=== PATIENT | female | born 2000 | race Hispanic/Latino ===

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

== ENCOUNTER 2024-01-21 08:40 | Emergency (ER) | payer OTHER ==
[~2024-01-21] VITALS: Ht 167.6 cm; Wt 95.3 kg
[2024-01-21] MEDS ORDERED: NAPR-1196 PO (09:30)
[2024-01-21 10:02] VITALS: BP 118/66; PULSE 69; RESP 16; TEMP 98.4; O2SAT 98
== END 2024-01-21 10:07 | disposition home or self-care (01) ==
LOC: EDH 08:40
DX: S93.491A Sprain of other ligament of right ankle, initial encounter (principal); X50.1XXA Overexertion from prolonged static or awkward postures, initial encounter; Y93.01 Activity, walking, marching and hiking; Y92.89 Other specified places as the place of occurrence of the external cause; Y99.8 Other external cause status
CPT/HCPCS: 73610

== ENCOUNTER 2025-01-05 03:45 | Emergency (ER) | payer SELFPAY ==
[~2025-01-05] VITALS: Ht 167.6 cm; Wt 100.2 kg
[~2025-01-05 03:45] MED LIST changes: +NAPR-1196 PO; -PREN1TAB89 PO
[2025-01-05 04:25] LABS: APPEARANCE,URINE CLOUDY (CLEAR); GLUCOSE, URINE (UA) NEGATIVE (NEGATIVE); LEUKOCYTE ESTERASE ,URINE 250 Leu/uL (NEGATIVE); NITRATE,URINE NEGATIVE (NEGATIVE); OCCULT BLOOD,URINE NEGATIVE (NEGATIVE)
[2025-01-05 04:33] LABS: ADD UA MICROSCOPIC YES
[2025-01-05 04:35] LABS: SQUAMOUS EPITHELIAL CELL,UR MANY /HPF (0-2)
[2025-01-05 04:42] LABS: IMMATURE GRANULOCYTE ABSOLUTE 0.10 K/uL (0-1); NUCLEATED RED BLOOD CELLS 0.0 % (0.0-0.19); PLATELET COUNT (AUTO) 324 K/uL (130-400); RED BLOOD CELL COUNT(AUTO) 4.55 MIL/uL (4.00-5.50); RED CELL DISTRIBUTION WIDTH 11.9 % (11.0-15.5); WHITE BLOOD COUNT (AUTO) 9.1 K/uL (4.8-10.8)
--- NOTE | 2025-01-05 04:55 | ERN ---
ED Note History of Present Illness Stated Complaint: C/O RUQ PAIN RADIATING TO BACK W/NAUSEA Chief Complaint: Abdominal Pain Time Seen by MD: 03:55 Dictation: This is a 24-year-old female who presented to the emergency room with complaints of right-sided abdominal pain radiating to the back associated with nausea that started with the past 24 hours. She denied any hematemesis or melena. She also denied any fever chills or rigors. Stated that after she ate her dinner she started having pain in the right-sided abdominal pain. She stated that when she had the similar attack last year it was extremely bad. She has been drinking water and taking care of herself Temperature 97.7 pulse 99 respirations 20 blood pressure 125/74 with a pulse oximetry of 97% on room air Chronic problem includes cholelithiasis and morbid obesity Allergies: Coded Allergies: No Known Drug Allergies (Unverified Allergy, Unknown, 05/17/17) Home Meds Active Scripts Naproxen (Naproxen) 250 Mg Tablet, 1 TAB PO BID for pain for 15 Days, #30 TAB 0 Refills Prov:SARAH BERGERON MD 01/21/24 Past Medical History Past Medical History: Cystic Fibrosis, Other Additional Past Medical Hx: HX OF GALLSTONES Surgical History: None Family History: Negative Social History: Negative LMP: Dec 30, 2024 RN Note Reviewed/Agreed w/PFSH: Yes Review of System Dictation Constitutional: Negative for fever,chills, and weight loss Eyes: Negative for injury, pain,redness, and discharge ENT: Negative for injury,pain or swelling Cardiovascular: Negative for chest pain, palpitations, and edema Respiratory: Negative for shortness of breath, cough, and wheezing, Abdomen/GI: Positive for right upper quadrant abdominal pain, nausea, vomiting, diarrhea, and constipation Back: Negative for injury and pain : Negative for injury, bleeding and discharge MS/Extremity: Negative for injury and deformity Skin: Negative for rash, and discoloration Neuro: Negative for headache, weakness, numbness, tingling, and seizure Psych: Negative for suicide ideation, homicidal ideation, and hallucinations Initial Vital Sign VS Vital Signs Date Time Temp Pulse Resp B/P (MAP) Pulse Ox O2 Delivery O2 Flow Rate FiO2 01/05/25 03:47 97.7 99 20 125/74 97 Room Air Physical Exam Dictation General: awake, alert, NAD morbidly obese female Head/Face: Normocephalic, atraumatic Eyes: PERRL, EOMI, vision at baseline ENT: oral cavity clear, TMs clear, no signs of infection Neck: Trachea midline, supple, no nuchal rigidity Cardiovascular: RRR, normal S1/S2, No MRGs, no JVD Respiratory: CTAB, no respiratory distress, No rales or wheezes Abdomen: Soft, right upper quadrant tenderness, non-distended, normal bowel sounds, no guarding or rebound. Skin: Warm, dry, normal turgor, no rash MS/Extremity: Pulses equal, no cyanosis, neurovascular intact, FROM Neuro: COAx4, GCS 15, strength 5/5, CN 2-12 intact, normal cerebellar exam, normal gait, Psych: Normal behavior, mood, and affect normal Extremities-trace edema without any palpable cords, Homans sign is negative Results (Laboratory/Radiology) Laboratory/Radiology Laboratory Tests Test 01/05/25 04:10 01/05/25 04:31 Urine Color LIGHT-YELLOW (YELLOW) Urine Appearance CLOUDY (CLEAR) H Urine pH 6.0 (5.0-8.0) Urine Specific Nerinx 1.025 (1.001-1.031) Urine Protein NEGATIVE mg/dL (NEGATIVE) Urine Glucose (UA) NEGATIVE mg/dL (NEGATIVE) Urine Ketones NEGATIVE mg/dL (NEGATIVE) Urine Occult Blood NEGATIVE (NEGATIVE) Urine Nitrate NEGATIVE (NEGATIVE) Urine Bilirubin NEGATIVE mg/dL (NEGATIVE) Urine Urobilinogen 0.2 mg/dL (0.2-1.0) Urine Leukocyte Esterase 250 Sissy/uL (NEGATIVE) H Urine RBC 6-10 /HPF (0-1) H Urine WBC 11-25 /HPF (0-1) H Urine Squamous Epithelial Cells MANY /HPF (0-2) Urine Bacteria MOD /HPF (None Seen) Urine Hyaline Casts 2-5 /LPF (0-1 /LPF) H Urine HCG, Qualitative NEGATIVE (NEGATIVE) White Blood Count 9.1 K/uL (4.8-10.8) Red Blood Count 4.55 MIL/uL (4.00-5.50) Hemoglobin 13.4 g/dL (12.0-16.0) Hematocrit 39.3 % (36-48) Mean Corpuscular Volume 86.4 fL (79-99) Mean Corpuscular Hemoglobin 29.5 pg (27.0-33.0) Mean Corpuscular Hemoglobin Concent 34.1 g/dL (32.0-36.0) Red Cell Distribution Width 11.9 % (11.0-15.5) Platelet Count 324 K/uL (130-400) Mean Platelet Volume 10.9 fL (7.5-10.5) H Immature Granulocyte % (Auto) 1.1 % (0-1) H Neutrophils (%) (Auto) 65.4 % (40.0-77.0) Lymphocytes (%) (Auto) 25.8 % (21.0-51.0) Monocytes (%) (Auto) 6.6 % (3.0-13.0) Eosinophils (%) (Auto) 0.7 % (0.0-8.0) Basophils (%) (Auto) 0.4 % (0.0-5.0) Neutrophils # (Auto) 6.0 K/uL (1.8-7.7) Lymphocytes # (Auto) 2.4 K/uL (1.0-4.8) Monocytes # (Auto) 0.6 K/uL (0.1-1.0) Eosinophils # (Auto) 0.06 K/uL (0.00-0.70) Basophils # (Auto) 0.04 K/uL (0.00-0.20) Absolute Immature Granulocyte (auto 0.10 K/uL (0-1) Nucleated Red Blood Cells 0.0 % (0.0-0.19) Sodium Level 140 mmol/L (136-145) Potassium Level 3.6 mmol/L (3.5-5.1) Chloride Level 104 mmol/L (101-111) Carbon Dioxide Level 27 mmol/L (21-32) Blood Urea Nitrogen 13 mg/dL (7-18) Creatinine 0.7 mg/dL (0.5-1.0) Glomerular Filtration Rate Calc 123 mL/min (>90) Random Glucose 102 mg/dL (70-105) Total Calcium 8.5 mg/dL (8.5-10.1) Total Bilirubin 0.3 mg/dL (0.2-1.0) Aspartate Amino Transf (AST/SGOT) 8 U/L (10-37) L Alanine Aminotransferase (ALT/SGPT) 20 U/L (12-78) Alkaline Phosphatase 100 U/L (50-136) Total Protein 7.2 g/dL (6.0-8.3) Albumin 3.5 g/dL (3.5-5.0) Amylase Level 49 U/L (25-115) Lipase 33 U/L (16-77) Labs Reviewed?: Yes ED Course ED Course Orders Procedure Category Date Status Time Vital Signs Per CPOE 01/05/25 Transmitted Routine 03:55 Saline Lock Iv CPOE 01/05/25 Transmitted 03:55 Cbc With Differential LAB 01/05/25 Complete 03:55 Comprehensive LAB 01/05/25 Complete Metabolic Panel 03:55 Lipase LAB 01/05/25 Complete 03:55 Amylase LAB 01/05/25 Complete 03:55 Urinalysis Profile LAB 01/05/25 Complete 03:55 ,Urine Test LAB 01/05/25 Complete 04:18 Culture Urine NINA 01/05/25 In Process 04:33 0.9%Nacl 1000ml (Ns PHA 01/05/25 Complete 1000ml) 05:00 Ketorolac PHA 01/05/25 Complete Tromethamine 15mg/Ml 05:00 Ondansetron 4mg Inj PHA 01/05/25 Complete (Zofran 4mg Inj) 05:00 Famotidine 20mg Tab PHA 01/05/25 Complete (Pepcid 20mg Tab) 05:00 Zosyn 3.375gm+Ns 50ml PHA 01/05/25 Complete (Zosyn 3.375gm+Ns 05:00 Current Medications Medications (Trade) Dose Ordered Sig/Annalee Route PRN Reason Start Time Stop Time Status Last Admin Dose Admin Famotidine (Pepcid 20mg Tab) 20 mg ONCE ONCE PO 01/05/25 05:00 01/05/25 05:01 DC 01/05/25 04:59 Ketorolac Tromethamine (toRADol) 15 mg ONCE ONCE IV 01/05/25 05:00 01/05/25 05:01 DC 01/05/25 05:00 Ondansetron HCl (zoFRAN 4MG INJ) 4 mg ONCE ONCE IVP 01/05/25 05:00 01/05/25 05:01 DC 01/05/25 04:59 Piperacillin Sod/ Tazobactam Sod (Zosyn 3.375gm+NS 50ml) 3.375 gm ONCE ONCE IV 01/05/25 05:00 01/05/25 05:01 DC 01/05/25 05:00 Sodium Chloride 1,000 ml @ 0 mls/hr ONCE ONCE IV 01/05/25 05:00 01/05/25 05:01 DC 01/05/25 05:00 Vital Signs Date Time Temp Pulse Resp B/P (MAP) Pulse Ox O2 Delivery O2 Flow Rate FiO2 01/05/25 03:47 97.7 99 20 125/74 97 Room Air We will perform diagnostic labs, advanced imaging and administer medications according to the patient's complaint. Once the results are available, will review and personally interpreted the labs to rule out any acute life- threatening emergency the trach require immediate intervention and treatment. I will then re-evaluate the patient after treatment and diagnostic exams have return to determine whether the patient requires any further testing, can safely be discharged home or need further admission to hospital for additional treatment and evaluation. Medical Decision Making MDM Differential diagnosis: Biliary colic, cholecystitis, gastritis, pancreatitis, renal colic, pyelonephritis Rationale: Tests considered and ordered secondary to shared decision making include: Previous outside records reviewed: Old ER visits. Risk of complication and/or morbidity or mortality of patient management: None Medications-Per medication reconciliation Need for hospitalization: Patient does not meet criteria for hospitalization. Need for emergency major/minor surgery: No There are no social concerns with this patient. Prescription drug management Prescriptions will include symptomatic care Patient's prior external medical records from other ER visits were reviewed by me as indicated. Prior testing and results from previous visits were reviewed. Prior tests were taken into account with medical decision making and resource utilization, independent historian/historians were used to obtain complete medical history. I independently interpreted the test that were performed, results were reviewed by me and considered findings on radiology if ordered. Medical management and examination interpretation discussions were had by me with other qualified healthcare professionals as indicated for the patient's care. Problem List Problem List: (1) Biliary colic symptom (2) UTI (urinary tract infection) (3) Cholelithiasis DX & DISP Disposition: Discharge Departure Impression: Primary Impression: Biliary colic symptom Additional Impressions: Cholelithiasis, UTI (urinary tract infection) Condition: Stable Scripts Nitrofurantoin Monohyd/M-Cryst (Macrobid 100 mg Capsule) 100 Mg Capsule 1 CAP PO BID for 7 Days, #14 CAP 0 Refills Prov: DANNY ENGLAND MD 01/05/25 Additional Instructions: Patient and the caregiver have been informed of all the diagnostic tests and the imaging conducted during the today's visit to the emergency room and has verbalized understanding of the results I have personally reviewed and interpreted all diagnostic exams performed here in the ER today as well as the vital signs documented by the nursing staff. The patient is now being discharge d to home and should follow up with the primary care physician or the specialist as directed by the ER staff. Referrals: SELF,REFERRAL (PCP) DANNY ENGLAND MD Jan 05, 2025 04:55
[2025-01-05] MEDS: FAMOTIDINE 20MG TAB PO ONE (04:59)
[2025-01-05] MEDS: ZOSYN 3.375GM +NS 50ML IV ONE (05:00)
[2025-01-05] MEDS: 0.9%NACL 1000ML 1,000 ML IV ONE (05:00)
[2025-01-05 05:02] LABS: CREATININE 0.7 mg/dL (0.5-1.0); GLOMERULAR FILTR. RATE CALC 123.0 mL/min (>90); GLUCOSE,RANDOM 102.0 mg/dL (70-105); SODIUM SERUM 140.0 mmol/L (136-145); UREA NITROGEN, BLOOD 13.0 mg/dL (7-18)
[2025-01-05 05:06] LABS: ASPARTATE AMINOTRANSFERASE 8.0 U/L (10-37); TOTAL PROTEIN, SERUM 7.2 g/dL (6.0-8.3)
[2025-01-05] MEDS ORDERED: NITR100C4 PO (05:38)
[2025-01-05 06:00] VITALS: BP 105/66; PULSE 65; RESP 18; TEMP 98.5; O2SAT 98
== END 2025-01-05 06:35 | disposition home or self-care (01) ==
LOC: EDH 03:45
DX: K80.20 Calculus of gallbladder without cholecystitis without obstruction (principal); N39.0 Urinary tract infection, site not specified
CPT/HCPCS: 99284; 96374; 96375 ×2; 82150; 80053; 83690; 85025; 87086; 81001; 81025; 36415; J1885; J7030; J2405; J2543